=== PATIENT | female | born 1990 | race African-American/Black ===

== ENCOUNTER 2017-01-04 15:33 | Emergency (ER) | payer BC, OTHER ==
[~2017-01-04] VITALS: Ht 160 cm; Wt 68.0 kg
[~2017-01-04 15:33] MED LIST: ERYTOIN10 LEFT EYE; IBUP800T23 PO
[2017-01-04 15:35] VITALS: BP 153/76; PULSE 104; RESP 20; TEMP 99.3; O2SAT 99
[2017-01-04] MEDS ORDERED: SODIUM CHLORIDE 0.9% FLUSH 10 ML FLUSH IVF PRN (16:45)
[2017-01-04] MEDS ORDERED: SODIUM CHLOR 0.9% 1000 ML INJ 1,000 ML IV ONE (16:45)
[2017-01-04] MEDS ORDERED: IBUPROFEN 800 MG TAB PO ONE (16:45)
--- NOTE | 2017-01-04 17:04 | PD ---
HPI Chief Complaint: Cold / Flu Symptoms Time Seen by Provider: 16:30 Travel History International Travel<30 days: No Contact w/Intl Traveler<30days: No Traveled to known affect area: No History of Present Illness HPI Patient is a 18-year-old female presented to emergency department evaluation of fevers, cough, chills, sweats, shortness of breath. She reports her max temp was 101.3, she last took ibuprofen at 9:00 this morning. She's had decreased appetite and has vomited once today. She denies any ear pain, throat pain, chest pain. Her last menstrual cycle started Saturday. She reports a history of asthma as a child. [facility]LY [facility] Past Medical History Asthma: Yes Hypertension: Yes ?: Not : 3 Para: 3 Past Surgical History Section: Yes (X3) Social History Alcohol Use: No Tobacco Use: No Substance Use: No Allergies-Medications (Allergen,Severity, Reaction): Coded Allergies: No Known Allergies (Verified , 01/04/17) Reported Meds & Prescriptions Reported Meds & Active Scripts Active Zofran Odt (Ondansetron Odt) 4 Mg Tab 4 Mg SL Q6HR PRN 3 Days Ibuprofen 800 Mg Tab 800 Mg PO Q6HR PRN Review of Systems Except as stated in HPI: all other systems reviewed are Neg General / Constitutional: Positive: Fever, Chills HENT: Positive: Congestion, No: Sore Throat Cardiovascular: No: Chest Pain or Discomfort Respiratory: Positive: Cough, Shortness of Breath, Wheezing Gastrointestinal: Positive: Nausea, Vomiting, No: Abdominal Pain Musculoskeletal: Positive: Myalgias Neurologic: No: Weakness, Dizziness Physical Exam Narrative GENERAL: Overweight, well-developed, alert female SKIN: Warm and dry. HEAD: Atraumatic. Normocephalic. EYES: Pupils equal and round. No scleral icterus. No injection or drainage. ENT: No nasal bleeding or discharge. Mucous membranes pink and moist. Her pharynx is mildly erythematous. NECK: Trachea midline. No JVD. CARDIOVASCULAR: Regular rate and rhythm. RESPIRATORY: No accessory muscle use. Scattered expiratory wheezes. Breath sounds equal bilaterally. GASTROINTESTINAL: Abdomen soft, non-tender, nondistended. Hepatic and splenic margins not palpable. MUSCULOSKELETAL: Extremities without clubbing, cyanosis, or edema. No obvious deformities. NEUROLOGICAL: Awake and alert. No obvious cranial nerve deficits. Motor grossly within normal limits. Five out of 5 muscle strength in the arms and legs. Normal speech. PSYCHIATRIC: Appropriate mood and affect; insight and judgment normal. Data Data Last Documented VS Vital Signs Date Time Temp Pulse Resp B/P Pulse Ox O2 Delivery O2 Flow Rate FiO2 01/04/17 17:23 95 18 126/ 98 Room Air 01/04/17 15:35 99.3 Orders Complete Blood Count With Diff (01/04/17 16:36) Comprehensive Metabolic Panel (01/04/17 16:36) Influenzae A/B Antigen (01/04/17 16:36) Chest, Single Ap (01/04/17 16:36) Iv Access Insert/Monitor (01/04/17 16:36) Ibuprofen (Motrin) (01/04/17 16:45) Sodium Chloride 0.9% Flush (Ns Flush) (01/04/17 16:45) Sodium Chlor 0.9% 1000 Ml Inj (Ns 1000 M (01/04/17 16:45) Labs Laboratory Tests Test 01/04/17 17:15 White Blood Count 3.5 TH/MM3 Red Blood Count 3.71 MIL/MM3 Hemoglobin 11.1 GM/DL Hematocrit 33.9 % Mean Corpuscular Volume 91.4 FL Mean Corpuscular Hemoglobin 29.8 PG Mean Corpuscular Hemoglobin 32.6 % Concent Red Cell Distribution Width 13.6 % Platelet Count 206 TH/MM3 Mean Platelet Volume 7.7 FL Neutrophils (%) (Auto) 65.8 % Lymphocytes (%) (Auto) 12.9 % Monocytes (%) (Auto) 13.1 % Eosinophils (%) (Auto) 7.7 % Basophils (%) (Auto) 0.5 % Neutrophils # (Auto) 2.3 TH/MM3 Lymphocytes # (Auto) 0.4 TH/MM3 Monocytes # (Auto) 0.5 TH/MM3 Eosinophils # (Auto) 0.3 TH/MM3 Basophils # (Auto) 0.0 TH/MM3 CBC Comment DIFF FINAL Differential Comment Sodium Level 141 MEQ/L Potassium Level 3.6 MEQ/L Chloride Level 107 MEQ/L Carbon Dioxide Level 26.5 MEQ/L Anion Gap 8 MEQ/L Blood Urea Nitrogen 9 MG/DL Creatinine 0.82 MG/DL Estimat Glomerular Filtration 100 ML/MIN Rate Random Glucose 101 MG/DL Calcium Level 8.1 MG/DL Total Bilirubin 0.1 MG/DL Aspartate Amino Transf 23 U/L (AST/SGOT) Alanine Aminotransferase 29 U/L (ALT/SGPT) Alkaline Phosphatase 79 U/L Total Protein 7.1 GM/DL Albumin 3.2 GM/DL [facility] Medical Decision Making Medical Screen Exam Complete: Yes Emergency Medical Condition: Yes Interpretation(s) Last Impressions Chest X-Ray 01/04/17 1636 Signed Impressions: Service Date/Time: Wednesday, January 04, 2017 16:58 - CONCLUSION: Normal examination. Martell Colon MD Laboratory Tests Test 01/04/17 17:15 White Blood Count 3.5 TH/MM3 Red Blood Count 3.71 MIL/MM3 Hemoglobin 11.1 GM/DL Hematocrit 33.9 % Mean Corpuscular Volume 91.4 FL Mean Corpuscular Hemoglobin 29.8 PG Mean Corpuscular Hemoglobin 32.6 % Concent Red Cell Distribution Width 13.6 % Platelet Count 206 TH/MM3 Mean Platelet Volume 7.7 FL Neutrophils (%) (Auto) 65.8 % Lymphocytes (%) (Auto) 12.9 % Monocytes (%) (Auto) 13.1 % Eosinophils (%) (Auto) 7.7 % Basophils (%) (Auto) 0.5 % Neutrophils # (Auto) 2.3 TH/MM3 Lymphocytes # (Auto) 0.4 TH/MM3 Monocytes # (Auto) 0.5 TH/MM3 Eosinophils # (Auto) 0.3 TH/MM3 Basophils # (Auto) 0.0 TH/MM3 CBC Comment DIFF FINAL Differential Comment Vital Signs Date Time Temp Pulse Resp B/P Pulse Ox O2 Delivery O2 Flow Rate FiO2 01/04/17 15:35 99.3 104 20 153/76 99 Room Air Differential Diagnosis Influenza versus pneumonia versus bronchitis versus viral syndrome versus other Narrative Course Patient is a 26-year-old female presenting to emergency for evaluation of cold and flu symptoms that started on Saturday. She was mildly tachycardic, labs and imaging ordered and pending. Patient was given IV fluids and Zofran. Influenza swab obtained. Chest x-ray shows no acute disease, patient is positive for influenza B. CBC is unremarkable Chemistry is unremarkable. Discussed with patient the need to continue symptomatic management, rest, increase fluid intake. She was encouraged to follow-up with her primary doctor return to emergency department any new or worsening symptoms. She verbalized understanding of these instructions. Patient is stable for discharge. Diagnosis Primary Impression: Influenza B Referrals: Primary Care Physician Patient Instructions: General Instructions, Influenza (ED) Departure Forms: Tests/Procedures, Work Release Enter return to work date: Jan 07, 2017 Special Instructions: Return to work when fever free for 24 hours Additional Instructions: Continue symptomatic management Take ibuprofen as needed and as directed for fevers or pain Increase fluid intake Return to emergency department for any new or worsening symptoms Follow up with your primary doctor Med/Other Pt SpecificInfo: Prescription(s) given Scripts Ondansetron Odt (Zofran Odt)4 Mg Tab4 Mg SL Q6HR PRN (Nausea/Vomiting) 3 Days Ref 0 Prov:Audrey Blackburn 01/04/17 Ibuprofen 800 Mg Qym569 Mg PO Q6HR PRN (PAIN) #40 TAB Ref 0 Prov:Audrey Blackburn 01/04/17 Disposition: 01 DISCHARGE HOME Condition: Stable Audrey Blackburn Jan 04, 2017 17:04
[2017-01-04 17:23] VITALS: BP_SYST 126; PULSE 95; RESP 18; O2SAT 98
--- NOTE | 2017-01-04 17:23 | RADRPT ---
EXAM DATE/TIME: 01/04/2017 16:58 [place] COMPARISON: No previous studies available for comparison. INDICATIONS : Cough, congestion, fever, nausea, vomiting, shortness of breath. MEDICAL HISTORY : None. SURGICAL HISTORY : None. ENCOUNTER: Initial ACUITY: 3 days PAIN SCORE: 6/10 LOCATION: chest midline FINDINGS: A single view of the chest demonstrates the lungs to be symmetrically aerated without evidence of mas s, infiltrate or effusion. The cardiomediastinal contours are unremarkable. Osseous structures are intact. CONCLUSION: Normal examination. Martell Colon MD on January 04, 2017 at 17:22 Board Certified Radiologist. This report was verified electronically.
[2017-01-04 17:40] LABS: AUTOMATED NEUTROPHIL # 2.3 TH/MM3 (1.8-7.7); BASOPHIL % 0.5 % (0.0-2.0); EOSINOPHIL # 0.3 TH/MM3 (0-0.4); EOSINOPHIL % 7.7 % (0.0-4.0); HEMATOCRIT 33.9 % (35.0-46.0); HEMO FLAGS DIFF FINAL; LYMPH % 12.9 % (9.0-44.0); LYMPHOCYTE # 0.4 TH/MM3 (1.0-4.8); MEAN CELL VOLUME 91.4 FL (80.0-100.0); MEAN CORPUSCULAR HEMOGLOBIN 29.8 PG (27.0-34.0); MEAN CORPUSCULAR HGB CONC 32.6 % (32.0-36.0); MONO % 13.1 % (0.0-8.0); NEUT % 65.8 % (16.0-70.0); PLATELET COUNT 206 TH/MM3 (150-450); RED BLOOD COUNT 3.71 MIL/MM3 (4.00-5.30); RED CELL DISTRIBUTION WIDTH 13.6 % (11.6-17.2); WHITE BLOOD COUNT 3.5 TH/MM3 (4.0-11.0)
[2017-01-04] MEDS ORDERED: ZOFR4TAB3 SL (17:56)
[2017-01-04] MEDS ORDERED: IBUP800T23 PO (17:56)
[2017-01-04 18:05] LABS: ALKALINE PHOSPHATASE 79 U/L (45-117); TOTAL BILIRUBIN ADULT 0.1 MG/DL (0.2-1.0)
[2017-01-04 18:15] LABS: ALT (GPT) 29 U/L (10-53); ANION GAP 8 MEQ/L (5-15); AST (GOT) 23 U/L (15-37); BICARBONATE 26.5 MEQ/L (21.0-32.0); BLOOD UREA NITROGEN 9 MG/DL (7-18); CHLORIDE 107 MEQ/L (98-107); GLOMERULAR FILTRATION RATE 100 ML/MIN (>89); POTASSIUM 3.6 MEQ/L (3.5-5.1); SODIUM (NA) 141 MEQ/L (136-145)
== END 2017-01-04 18:47 | disposition home or self-care (01) ==
LOC: NEPD 15:33
DX: J11.1 Influenza due to unidentified influenza virus with other respiratory manifestations (principal); J45.909 Unspecified asthma, uncomplicated; I10 Essential (primary) hypertension
CPT/HCPCS: 71010; 80053; 85025; 87804; 96360; 99283; J7030